=== PATIENT | male | born 1965 | race Caucasian/White ===

== ENCOUNTER 2023-12-16 13:04 | Outpatient (CLI) | payer OTHER, SELFPAY ==
--- NOTE | ~2023-12-16 | MR_ITS ---
EXAMINATION: MR brain/brain stem wo/w con DATE: 12/16/2023 14:13 INDICATION: Dizziness, giddiness and amnesia TECHNIQUE: Magnetic resonance imaging (MRI) of the brain and brainstem was performed without and with 20 mL Multihance intravenous contrast. Sequences included sagittal and axial T1-weighted SE, axial d iffusion-weighted FS SE, axial T2*-weighted GRE, axial T2-weighted FLAIR, and axial T2-weighted FSE. Postcontrast axial and coronal T1-weighted SE was obtained. Apparent diffusion coefficient (ADC) maps were created. COMPARISON: None. FINDINGS: There are no areas of restricted diffusion to suggest acute infarction. No intracranial hemorrhage or abnormal intracranial mass lesion. There are scattered areas of nonspecific increased T2-weighted si gnal intensity in the cerebral and pontine white matter, predominantly involving the deep and periven tricular white matter. There are no intraparenchymal signal abnormalities seen on the other pulse seq uences. The ventricles are symmetric and normal in size. There are no abnormal extra-axial fluid heather ections. Flow voids are seen in the cerebral arteries on the T2-weighted sequences consistent with th eir expected patency. Small mucous retention cysts in the bilateral maxillary sinuses Visualized orbi ts and soft tissues are unremarkable. There are no areas of abnormal enhancement on the post contrast images. IMPRESSION: 1. Normal aging brain with mild to moderate scattered nonspecific the cerebral and pontine white sukhdev er T2 hyperintensity likely sequela of chronic small vessel ischemic disease. No acute intracranial p rocess. Reviewed, dictated and finalized at location A. IMPRESSION: 1. Normal aging brain with mild to moderate scattered nonspecific the cerebral and pontine white matter T2 hyperintensity likely sequela of chronic small vess el ischemic disease. No acute intracranial process.
== END 2023-12-16 13:05 | disposition home or self-care (01) ==
PROVIDERS: PCP Nurse Practitioner Family; Visit Provider Nurse Practitioner Family
DX: R42 Dizziness and giddiness (principal); R07.9 Chest pain, unspecified; E11.65 Type 2 diabetes mellitus with hyperglycemia
CPT/HCPCS: 70553; A9577